=== PATIENT | female | born 1975 | race Asian ===

== ENCOUNTER 2018-07-03 12:11 | Emergency (ER) | payer OTHER ==
[2018-07-03 12:32] VITALS: BP 148/82; PULSE 109; TEMP 99.6; BMI 29.2
--- NOTE | 2018-07-03 13:27 | PDOC ---
History of Present Illness - General Chief Complaint: Pain Stated Complaint: Bite Time Seen by Provider: 07/03/18 12:52 - History of Present Illness Initial Comments: 07/03/18 13:21 42 year old patient with history of DM presents with R back abscess that started 1 week ago after suspected spider bite. The patient noted the development of a whiteon the lesion with pus and blood drainage 5 days. The patient went to urgent care 3 days ago and was given 500mg Keflex which she has taken for 3 days and used warm compress. The lesions has increased in size, has become more red and is warm to the touch. The patient denies any fevers, tenderness to touch of the lesion. She notes that she has diabetes but does not take her DM medications. She denies any chest pain, shortness of breath, abdominal pain, nausea, vomiting, diarrhea. Past History - Past Medical History Allergies/Adverse Reactions: Allergies Allergy/AdvReac Type Severity Reaction Status Date / Time No Known Allergies Allergy Verified 07/03/18 12:28 Home Medications: Ambulatory Orders Amox-Tr/K Cl [Augmentin - 500Mg Tablet] 1 tab PO BID #14 tab 07/03/18 Ibuprofen [Motrin -] 400 mg PO TID #10 tablet 07/03/18 Sulfamethoxazole/Trimethoprim [Bactrim Ds Tablet] 1 each PO BID 7 Days tablet 07/03/18 Tramadol HCl [Ultram] 50 mg PO BID PRN #7 tablet MDD 2 tabs 07/03/18 - Suicide/Smoking/Psychosocial Hx Smoking History: Never smoked Hx Alcohol Use: No Drug/Substance Use Hx: No *Physical Exam - Vital Signs Last Vital Signs Temp Pulse Resp BP Pulse Ox 99.6 F 109 H 20 148/82 98 07/03/18 12:28 07/03/18 12:28 07/03/18 12:28 07/03/18 12:28 07/03/18 12:28 - Physical Exam Comments: 07/03/18 13:28 + L upper back abscess erythematous, warm to touch, head with purulent drainage approx 8cm in diameter, indurated and hard without notable fluctulance on palpation. Procedures - Incision and Drainage I&D Site: Right: Torso (back) Betadine cleansed: Yes Anesthesia: 1% Lidocaine Volume(ml): 5 Blade Size: 10 Attempts: 1 Iodinated Packin/2 in Plain Packing: No Complications: none Dressing: Yes Medical Decision Making - Medical Decision Making 07/03/18 13:30 42 year old patient with history of DM presents with R back abscess that started 1 week ago after suspected spider bite. The patient noted the development of a whiteon the lesion with pus and blood drainage 5 days. The patient went to urgent care 3 days ago and was given 500mg Keflex which she has taken for 3 days and used warm compress. The lesions has increased in size, has become more red and is warm to the touch. The patient denies any fevers, tenderness to touch of the lesion. She notes that she has diabetes but does not take her DM medications. She denies any chest pain, shortness of breath, abdominal pain, nausea, vomiting, diarrhea. *DC/Admit/Observation/Transfer Diagnosis at time of Disposition: Abscess - Discharge Dispostion Disposition: HOME Condition at time of disposition: Stable Decision to Admit order: No - Prescriptions Prescriptions: Amox-Tr/K Cl [Augmentin - 500Mg Tablet] 1 tab PO BID #14 tab Ibuprofen [Motrin -] 400 mg PO TID #10 tablet Sulfamethoxazole/Trimethoprim [Bactrim Ds Tablet] 1 each PO BID 7 Days tablet Tramadol HCl [Ultram] 50 mg PO BID PRN #7 tablet MDD 2 tabs PRN Reason: Pain - Referrals Referrals: Max Rudd MD [Primary Care Provider] - - Patient Instructions Printed Discharge Instructions: DI for Skin Abscess Additional Instructions: You were seen in the ED for complaints of back skin abscess. In the ED you were evaluated and treated with incision & drainage and antibiotics. There does not appear to be an acute need for immediate hospitalization. You are advised to follow up with your Primary Care Physician and [employer] Worker within 1 week. You were given a prescription for antibiotics and pain medications. Return to the ED every 2 days for repeat evaluation and treatment of the wound. As the wound heals you may return to the ED every 3 days. Please return to the ED on 07/05/18 for follow up. Return to the ED immediately if you experience worsening pain at the site of the wound, fevers, headaches, nausea, vomiting, drainage of the wound that is not pus or blood, spread of erythema, warmth or hardness of the skin. - Post Discharge Activity
[2018-07-03] MEDS ORDERED: SULFAMETHOXAZOLE/TRIMETHOPRIM 800MG/160MG D.S. TABLET PO ONE (13:33)
[2018-07-03] MEDS ORDERED: SULFAMETHOXAZOLE/TRIMETHOPRIM 800MG/160MG D.S. TABLET ONE (13:39)
--- NOTE | 2018-07-03 14:25 | PDOC ---
Attending Attestation - Resident Resident Name: Mariposa Campa - ED Attending Attestation I have performed the following: I have examined & evaluated the patient, The case was reviewed & discussed with the resident, I agree w/resident's findings & plan - HPI HPI: 07/03/18 14:23 42-year-old female diabetic presents with increasing right mid back abscess despite starting Keflex 2 days ago after urgent care visit. Question whether it started as a spider bite, notes pustular head with discharge. Denies any systemic fevers or chills. - Physicial Exam PE: 07/03/18 14:23 Temp 99.6, vitals are otherwise within normal limits Well-appearing and ambulating Right mid back: There is a 8-10 cm indurated area with central purulent discharge and fluctuance, no other cellulitis. Lungs are clear, there is no crepitus. - Medical Decision Making 07/03/18 14:24 42-year-old female diabetic with right mid back skin abscess, no systemic symptoms or evidence of SIRS. We'll broaden antibiotic coverage from cephalexin to Bactrim and Augmentin in this diabetic female Status post incision and drainage of abscess with copious amounts of purulence, culture sent Tolerated well, agrees with discharge plan
== END 2018-07-03 14:56 | disposition home or self-care (01) ==
LOC: JER 12:11 → JERFT 12:11 → JER 14:56
PROC: 0J970ZZ Drainage of Back Subcutaneous Tissue and Fascia, Open Approach (ICD-10-PCS; principal; 2018-07-03)
DX: L02.212 Cutaneous abscess of back [any part, except buttock and flank] (principal); E11.9 Type 2 diabetes mellitus without complications; Z91.14 Patient's other noncompliance with medication regimen
CPT/HCPCS: 87070; 87186; 87205; 99282-25

== ENCOUNTER 2018-07-05 09:42 | Emergency (ER) | payer OTHER ==
[2018-07-05 09:50] VITALS: BP 126/84; PULSE 84; TEMP 98.7; BMI 26.5
--- NOTE | 2018-07-05 10:52 | PDOC ---
Suture Removal/Wound Check HPI - History of Present Illness Chief Complaint: Revisit,Wound Recheck Stated Complaint: REVISIT, WOUND CHECK Time Seen by Provider: 07/05/18 10:23 History Source: Yes: Patient Exam Limitations: Yes: No Limitations Treated at: [facility] Date of Last ED visit: 07/03/18 - Previous ED Treatment Type of procedure performed on last visit: Yes: I&D of Abscess Tetanus Immunization: Yes: Up to Date Antibiotics Prescribed: Yes Past History - Past Medical History Allergies/Adverse Reactions: Allergies Allergy/AdvReac Type Severity Reaction Status Date / Time No Known Allergies Allergy Verified 07/05/18 09:47 Home Medications: Ambulatory Orders Amox-Tr/K Cl [Augmentin - 500Mg Tablet] 1 tab PO BID #14 tab 07/03/18 Ibuprofen [Motrin -] 400 mg PO TID #10 tablet 07/03/18 Sulfamethoxazole/Trimethoprim [Bactrim Ds -] 1 tab PO BID #14 tablet 07/03/18 Sulfamethoxazole/Trimethoprim [Bactrim Ds Tablet] 1 each PO BID 7 Days tablet 07/03/18 Tramadol HCl [Ultram] 50 mg PO BID PRN #7 tablet MDD 2 tabs 07/03/18 COPD: No - Suicide/Smoking/Psychosocial Hx Smoking History: Never smoked Hx Alcohol Use: No Drug/Substance Use Hx: No Suture Removal/Wound Check PE - Physical Exam Laceration/Wound Check Symptoms: reports: Improved Comments: 07/05/18 10:49 wound improving with continued copious amounts of pus drainage to mid back denies fever 07/05/18 10:50 *Physical Exam - Vital Signs Last Vital Signs Temp Pulse Resp BP Pulse Ox 98.7 F 84 19 126/84 99 07/05/18 09:49 07/05/18 09:49 07/05/18 09:49 07/05/18 09:49 07/05/18 09:49 - Physical Exam General Appearance: Yes: Nourished, Appropriately Dressed HEENT: positive: EOMI, NEISHA Integumentary: positive: Other (mid back with abscess that is draining copious amounts of pus large indurated area surrounding the abscess) Procedures - Incision and Drainage Iodinated Packin/4 in Plain Packing: Yes Complications: none Dressing: Yes Progress: 07/05/18 11:08 packing removed and changed sterile gauze dressing placed Medical Decision Making - Medical Decision Making 07/05/18 11:09 cc: follow up abscess no fever no chills, states improving still with some pain will repack, manualy expressed large amount of pus dressing placed I discussed in detail that pt must follow with the surgeon as this can continue to fill back up and may need surgical drainage pt understands will call today pt will return in 2 days for wound check sooner if worse *DC/Admit/Observation/Transfer Diagnosis at time of Disposition: Wound check, abscess - Discharge Dispostion Disposition: HOME Condition at time of disposition: Good - Referrals Referrals: Eliazar Sanders MD [Staff Physician] - Max Rudd MD [Primary Care Provider] - - Patient Instructions Additional Instructions: apply warm compresses over the dressing to the area every 3-4 hrs for 20 minutes change the dressing as needed DO NOT GET WET return in 2-3 days for a wound check if any fever or worsening pain return sooner call the surgeon to make appointment for follow up - Post Discharge Activity
== END 2018-07-05 11:09 | disposition home or self-care (01) ==
LOC: JERFT 09:42
DX: Z48.817 Encounter for surgical aftercare following surgery on the skin and subcutaneous tissue (principal); Z48.01 Encounter for change or removal of surgical wound dressing
CPT/HCPCS: 99281-25

== ENCOUNTER 2018-07-07 08:56 | Emergency (ER) | payer OTHER ==
[2018-07-07 09:06] VITALS: BP 119/72; PULSE 90; TEMP 98; BMI 29.2
--- NOTE | 2018-07-07 10:12 | PDOC ---
Suture Removal/Wound Check HPI - History of Present Illness Chief Complaint: Revisit,Wound Recheck Stated Complaint: RE-VISIT Time Seen by Provider: 07/07/18 09:16 History Source: Yes: Patient Exam Limitations: Yes: No Limitations Treated at: [facility] Date of Last ED visit: 07/03/18 - Previous ED Treatment Type of procedure performed on last visit: Yes: I&D of Abscess (Done on 07/03/18 ) Past History - Travel Traveled outside of the country in the last 30 days: No Close contact w/someone who was outside of country & ill: No - Past Medical History Allergies/Adverse Reactions: Allergies Allergy/AdvReac Type Severity Reaction Status Date / Time No Known Allergies Allergy Verified 07/07/18 09:04 Home Medications: Ambulatory Orders Amox-Tr/K Cl [Augmentin - 500Mg Tablet] 1 tab PO BID #14 tab 07/03/18 Ibuprofen [Motrin -] 400 mg PO TID #10 tablet 07/03/18 Sulfamethoxazole/Trimethoprim [Bactrim Ds -] 1 tab PO BID #14 tablet 07/03/18 Sulfamethoxazole/Trimethoprim [Bactrim Ds Tablet] 1 each PO BID 7 Days tablet 07/03/18 Tramadol HCl [Ultram] 50 mg PO BID PRN #7 tablet MDD 2 tabs 07/03/18 COPD: No Diabetes: Yes - Suicide/Smoking/Psychosocial Hx Smoking History: Never smoked Information on smoking cessation initiated: No Hx Alcohol Use: No Drug/Substance Use Hx: No Substance Use Type: None Suture Removal/Wound Check PE - Physical Exam Laceration/Wound Check Symptoms: reports: Improved Comments: 07/07/18 10:09 Abscess drained on 07/03/18. Currently with some brown drainage. No cellulities or induration at this time. Packing in place. Current Severity Level: None Maximum Severity Level: None Location of Laceration/Wound: right: Back (mid back) Pain Radiation: None *Review of Systems - Review of Systems Able to Perform ROS?: Yes Constitutional: No: Chills, Fever, Weakness Integumentary: Yes: Other (open draining abscess). No: Bruising, Erythema, Rash Neurological: No: Numbness, Tingling, Weakness All Other Systems: Reviewed and Negative *Physical Exam - Vital Signs Last Vital Signs Temp Pulse Resp BP Pulse Ox 98.0 F 90 18 119/72 100 07/07/18 09:04 07/07/18 09:04 07/07/18 09:04 07/07/18 09:04 07/07/18 09:04 - Physical Exam General Appearance: Yes: Nourished, Appropriately Dressed. No: Apparent Distress Medical Decision Making - Medical Decision Making 07/07/18 10:10 Patient is a 39-year-old female with diabetes results emergency department for wound check for a right back abscess. -Packing was replaced on 07/05/18 at wound check. -Packing removed today. Still with brownish/purulent drainage. Packing replaced. Patient told to return in 2 days for wound check. Patient afebrile, wound appears clean with no induration or evidence of worsening infection. -Patient instructed to continue her antibiotics as previously prescribed. Discharge home with surgical follow-up. Also advised to return in 2 days for wound check to remove her packing. -I discussed the physical exam findings, ancillary test results and final diagnoses with the patient. I answered all of the patient's questions. The patient was satisfied with the care received and felt comfortable with the discharge plan and treatment plan. The Patient agrees to follow up with the primary care physician/specialist within 24-72 hours. Return precautions were given. *DC/Admit/Observation/Transfer Diagnosis at time of Disposition: Wound check, abscess - Discharge Dispostion Disposition: HOME Condition at time of disposition: Stable Decision to Admit order: No - Referrals Referrals: Max Rudd MD [Primary Care Provider] - Benjamín Alexandre MD [Staff Physician] - - Patient Instructions Printed Discharge Instructions: DI for Incision and Drainage of a Skin Abscess Additional Instructions: You had your packing change today. Please return to days for another wound check. Please continue her antibiotics as previously prescribed. Please follow-up with Dr. Alexandre surgery, for further evaluation. Return to the emergency department sooner for fevers, chills, nausea, vomiting or any changes in your symptoms. - Post Discharge Activity
== END 2018-07-07 10:16 | disposition home or self-care (01) ==
LOC: JERFT 08:56
DX: Z48.817 Encounter for surgical aftercare following surgery on the skin and subcutaneous tissue (principal); Z48.01 Encounter for change or removal of surgical wound dressing
CPT/HCPCS: 99281-25

== ENCOUNTER 2018-07-09 09:01 | Emergency (ER) | payer OTHER ==
[2018-07-09 09:43] VITALS: BP 131/76; PULSE 92; TEMP 98.6; BMI 29.2
--- NOTE | 2018-07-09 10:01 | PDOC ---
Suture Removal/Wound Check HPI - History of Present Illness Chief Complaint: Revisit,Wound Recheck Stated Complaint: SUTURE REMOVE Time Seen by Provider: 07/09/18 09:54 History Source: Yes: Patient Exam Limitations: Yes: No Limitations Treated at: [facility] Date of Last ED visit: 07/03/18 - Previous ED Treatment Type of procedure performed on last visit: Yes: I&D of Abscess Tetanus Immunization: Yes: Up to Date Past History - Travel Traveled outside of the country in the last 30 days: No Close contact w/someone who was outside of country & ill: No - Past Medical History Allergies/Adverse Reactions: Allergies Allergy/AdvReac Type Severity Reaction Status Date / Time No Known Allergies Allergy Verified 07/09/18 09:40 Home Medications: Ambulatory Orders Amox-Tr/K Cl [Augmentin - 500Mg Tablet] 1 tab PO BID #14 tab 07/03/18 Ibuprofen [Motrin -] 400 mg PO TID #10 tablet 07/03/18 Sulfamethoxazole/Trimethoprim [Bactrim Ds -] 1 tab PO BID #14 tablet 07/03/18 Sulfamethoxazole/Trimethoprim [Bactrim Ds Tablet] 1 each PO BID 7 Days tablet 07/03/18 Tramadol HCl [Ultram] 50 mg PO BID PRN #7 tablet MDD 2 tabs 07/03/18 COPD: No Diabetes: Yes - Suicide/Smoking/Psychosocial Hx Smoking History: Never smoked Hx Alcohol Use: No Drug/Substance Use Hx: No Substance Use Type: None Suture Removal/Wound Check PE - Physical Exam Laceration/Wound Check Symptoms: reports: None Current Severity Level: None Maximum Severity Level: None Pain Localization: None Comments: 07/09/18 10:02 Patient with incision and drainage of large abscess to right low thorax with packing changes 2. Patient states feels much improved, has no fever, has not drained enough To change dressing in 2 days. Blood sugars are within normal limits. Last dose of antibiotics is tomorrow *Review of Systems - Review of Systems Able to Perform ROS?: Yes Constitutional: Yes: Symptoms Reported, See HPI. No: Fever, Malaise HEENTM: No: Symptoms Reported Respiratory: No: Symptoms reported Cardiac (ROS): No: Symptoms Reported ABD/GI: No: Symptoms Reported Integumentary: Yes: Symptoms Reported, See HPI, Lesions Neurological: No: Symptoms reported All Other Systems: Reviewed and Negative *Physical Exam - Vital Signs Last Vital Signs Temp Pulse Resp BP Pulse Ox 98.6 F 92 H 16 131/76 99 07/09/18 09:40 07/09/18 09:40 07/09/18 09:40 07/09/18 09:40 07/09/18 09:40 - Physical Exam General Appearance: Yes: Nourished, Appropriately Dressed. No: Apparent Distress HEENT: positive: NEISHA, Normal ENT Inspection, TMs Normal, Pharynx Normal Neck: negative: Tender Gastrointestinal/Abdominal: positive: Soft Integumentary: positive: Normal Color, Other (wound to right lower thorax with mild induration approximately 2 cm with packing, removed with wound approximately 1 cm x 1 cm deep and oozing some purulent serosanguineous drainage. Nontender) Neurologic: positive: hospital medicine director II-XII NML intact, Fully Oriented, Alert, Normal Mood/ Affect, Normal Response, Motor Strength 5/5 Medical Decision Making - Medical Decision Making 07/09/18 10:04 Wound check healing well, no packing required. Redressed with looser gauze dressing and patient will continue to follow up with surgery. *DC/Admit/Observation/Transfer Diagnosis at time of Disposition: Wound check, abscess - Discharge Dispostion Disposition: HOME Condition at time of disposition: Stable Decision to Admit order: No - Referrals Referrals: Benjamín Alexandre MD [Staff Physician] - - Patient Instructions Printed Discharge Instructions: DI for Debridement of a Wound, Infection, or Burn Additional Instructions: Rest, keep area elevated. Avoid strenuous activity or exercise until wound is healed Use hot soaks to area to bring more blood to the surface and encourage drainage May change dressings as needed to keep clean - trying to avoid removal of packing for 2 days. Allow water from shower to wash area thoroughly for 2-3 minutes, and pat dry upon exit of shower and replace dressing. Change his dressing daily until the wound is completely healed. May use Tylenol or Motrin for mild pain relief Use stronger medications as directed and prescribed Continue all medications as prescribed Followup with private physician in 2-3 days for wound check Return to emergency Department for worsening swelling, pain, redness, fevers as needed - Post Discharge Activity Forms/Work/School Notes: Back to Work
== END 2018-07-09 10:08 | disposition home or self-care (01) ==
LOC: JERFT 09:01
DX: Z48.817 Encounter for surgical aftercare following surgery on the skin and subcutaneous tissue (principal); Z48.01 Encounter for change or removal of surgical wound dressing
CPT/HCPCS: 99281-25

== ENCOUNTER 2021-09-20 17:47 | Emergency (ER) | payer OTHER ==
[2021-09-20 17:55] VITALS: BP 146/87; PULSE 97; TEMP 98; BMI 28.3
== END 2021-09-20 20:46 | disposition home or self-care (01) ==
LOC: JER 17:47
DX: R22.42 Localized swelling, mass and lump, left lower limb (principal)
CPT/HCPCS: 93971-TC; 99284-25